=== PATIENT | male | born 1950 | race Caucasian/White ===

== ENCOUNTER 2019-03-23 15:01 | Observation (INO) ==
[2019-03-23 17:07] LABS: BASOPHILS % (AUTO) 0.6 % (0.2-1.0); EOSINOPHILS # (AUTO) 0.3 x10^3/uL (0.0-0.2); EOSINOPHILS % (AUTO) 3.9 % (0.9-2.9); HEMATOCRIT 35.5 % (42.0-54.0); LYMPHOCYTES # (AUTO) 1.6 X10^3/uL (1.3-2.9); LYMPHOCYTES % (AUTO) 22.7 % (21.0-51.0); MEAN CORPUSCULAR HEMOGLOBIN 27.8 pg (27.0-34.0); MEAN CORPUSCULAR HGB CONC 33.7 g/dL (33.0-35.0); MEAN CORPUSCULAR VOLUME 82.4 fL (80.0-100.0); MEAN PLATELET VOLUME 8.9 fL (7.4-11.0); MONOCYTES # (AUTO) 0.9 x10^3/uL (0.3-0.8); MONOCYTES % (AUTO) 12.3 % (0.0-13.0); NEUTROPHILS # (AUTO) 4.2 x10^3/uL (2.2-4.8); NEUTROPHILS % (AUTO) 60.5 % (42.0-75.0); PLATELET COUNT 272 X10^3/uL (150.0-450.0); RED BLOOD COUNT 4.31 X10^6/uL (4.7-6.0); RED CELL DISTRIBUTION WIDTH 14.3 % (11.6-16.5); WHITE BLOOD COUNT 6.9 X10^3/uL (3.6-10.0)
[2019-03-23 17:20] VITALS: BMI 30.2
[2019-03-23 17:20] LABS: ALANINE AMINOTRANSFERASE 20 Units/L (12-78); ALBUMIN 3.6 g/dL (3.4-5.0); ALKALINE PHOSPHATASE 164 Units/L (46-116); ASPARTATE AMINO TRANSFERASE 18 Units/L (15-37); BLOOD UREA NITROGEN 20 mg/dL (7-18); CALCIUM 9.1 mg/dL (8.5-10.1); CARBON DIOXIDE 26.7 mmol/L (21-32); CHLORIDE 106 mmol/L (98-107); CREATININE 1.56 mg/dL (0.70-1.30); SODIUM 144 mmol/L (136-145); TOTAL PROTEIN 7.6 g/dL (6.4-8.2); eGFR NON BLACK RACES 47 (>60)
--- NOTE | 2019-03-23 17:30 | DR.H&P ---
H&P - History & Physical for Day of: H&P Date: 03/23/19 - Chief Complaint Chief Complaint: left groin wound - History of Present Illness History of Present Illness: Patient is a 68 year old male that is being admitted secondary to a wound to the left groin. Patient reports that he had a heart cath on February 16. States that he had CABG on February 25. States that he has not noticed the site until he started smelling a foul smell. Denies groing pain. states that she did see the wound for the first time last night and it has been draining purulent drainage. Patient will be admitted for further evaluation and treatment. - Past Medical History Past Medical History: Coronary Artery Disease, Hypertension Additional Medical History: neuropathy, squamous cell carcinoma - Past Surgical History Surgical History: Appendectomy, Other - Family History Family Medical History: Coronary Artery Disease - Social History Does patient currently use any type of tobacco product: No Have you used tobacco products in the last 12 months: No Type of Tobacco Use: None Does any household member use tobacco: No Alcohol Use: None Drug Use: None - Medications Home Medications: No Known Drug Allergies [NKDA] Allergy (Verified 03/23/19 16:53) - Review of Systems Constitutional: See HPI Eyes: See HPI ENT: See HPI Respiratory: See HPI Cardiovascular: See HPI Gastrointestinal: See HPI Genitourinary: See HPI Musculoskeletal: See HPI Skin: See HPI Neurological: See HPI - Physical Exam Vital Signs: Temperature 97.8 F Pulse Rate [Apical] 58 Respiratory Rate 18 Blood Pressure [Right Arm] 119/62 O2 Sat by Pulse Oximetry 99 Oriented: Normal Eyes: Normal Ear: Normal Nose: Normal Throat: Normal Respiratory: Clear Throughout Cardiovascular: Normal : Normal Auscultation: Bowel Sounds: Normal Palpation: Normal Tenderness: Normal Skin: Normal (5cm open non-healing wound draining purulent drainage noted to left groin) Musculoskeletal: Normal Psychiatric: Normal Mood Description: Calm Affect: Angry Speech Pattern: Clear - Assessment/Plan (1) Wound dehiscence, surgical Status: Acute Plan: Consult surgery. IV antibiotics - Allergies Allergies/Adverse Reactions: Allergies Allergy/AdvReac Type Severity Reaction Status Date / Time No Known Drug Allergies Allergy Verified 03/23/19 16:53 [NKDA]
[2019-03-23] MEDS: HYDROGEN PEROXIDE 3% MT PRN ×2 (18:14→21:40)
[2019-03-23] MEDS: NEOSPORIN OINT TOP PRN ×2 (18:15→21:40)
[2019-03-23] MEDS: NS 1000 ML 1,000 ML IV SCH (18:23)
[2019-03-23] MEDS: VANCOMYCIN HCL 1 GM VIAL 1 G in D5W 250 ML IV 250 ML IV SCH (20:17)
[2019-03-23 20:39] LABS: BILIRUBIN,URINE NEGATIVE (NEGATIVE); BLOOD/HEMOGLOBIN,URINE NEGATIVE (NEGATIVE); GLUCOSE, URINE NEGATIVE (NEGATIVE); KETONES,URINE NEGATIVE (NEGATIVE); LEUKOCYTE ESTERASE ,URINE 1+ (NEGATIVE); NITRITES,URINE NEGATIVE (NEGATIVE); PROTEIN,URINE 1+ (NEGATIVE); UROBILINOGEN,URINE 2+ (NORMAL)
[2019-03-23 20:54] LABS: APPEARANCE,URINE CLEAR (CLEAR); COLOR,URINE YELLOW (YELLOW); RBC,URINE NONE SEEN /HPF (NONE SEEN)
[2019-03-23 20:55] LABS: BACTERIA,URINE NEGATIVE /HPF (NEGATIVE); SQUAMOUS EPITHELIAL CELL,UR NEGATIVE /HPF (NEGATIVE)
[2019-03-24] MEDS: NEOSPORIN OINT TOP PRN ×5 (03:52→21:50)
[2019-03-24] MEDS: HYDROGEN PEROXIDE 3% MT PRN ×3 (03:52→21:43)
[2019-03-24 06:07] LABS: BASOPHILS % (AUTO) 0.4 % (0.2-1.0); EOSINOPHILS # (AUTO) 0.4 x10^3/uL (0.0-0.2); HEMATOCRIT 32.8 % (42.0-54.0); LYMPHOCYTES # (AUTO) 1.4 X10^3/uL (1.3-2.9); LYMPHOCYTES % (AUTO) 23.2 % (21.0-51.0); MEAN CORPUSCULAR HEMOGLOBIN 27.5 pg (27.0-34.0); MEAN CORPUSCULAR HGB CONC 33.6 g/dL (33.0-35.0); MEAN CORPUSCULAR VOLUME 81.9 fL (80.0-100.0); MEAN PLATELET VOLUME 9.2 fL (7.4-11.0); MONOCYTES # (AUTO) 0.8 x10^3/uL (0.3-0.8); MONOCYTES % (AUTO) 13.4 % (0.0-13.0); NEUTROPHILS # (AUTO) 3.4 x10^3/uL (2.2-4.8); PLATELET COUNT 217 X10^3/uL (150.0-450.0); RED BLOOD COUNT 4.01 X10^6/uL (4.7-6.0); RED CELL DISTRIBUTION WIDTH 14.1 % (11.6-16.5); WHITE BLOOD COUNT 5.9 X10^3/uL (3.6-10.0)
[2019-03-24] MEDS: NS 1000 ML 1,000 ML IV SCH ×3 (06:13→21:43)
[2019-03-24 06:29] LABS: ALANINE AMINOTRANSFERASE 21 Units/L (12-78); ALKALINE PHOSPHATASE 152 Units/L (46-116); ASPARTATE AMINO TRANSFERASE 15 Units/L (15-37); BLOOD UREA NITROGEN 19 mg/dL (7-18); CALCIUM 8.4 mg/dL (8.5-10.1); CHLORIDE 108 mmol/L (98-107); COR CA(FOR HYPOALB) 9.2 mg/dL (8.5-10.1); COR NA(FOR HYPERGLY) 145 mmol/L (136-145); CREATININE 1.37 mg/dL (0.70-1.30); SODIUM 145 mmol/L (136-145); TOTAL PROTEIN 6.6 g/dL (6.4-8.2); eGFR NON BLACK RACES 55 (>60)
--- NOTE | 2019-03-24 07:01 | CT ---
HISTORY: Redness swelling right groin Study: CT pelvis with contrast Comparison: None Technique: Axial post-contrast images with coronal and sagittal reformats. Dose reduction procedures were used with mA/kv adjusted for body size. Findings: There is a CAVAL FILTER present. There is evidence for dissection involving the visualized distal abdominal aorta extending into the right common iliac artery and possibly into the proximal right external iliac artery. The visualized distal right external iliac artery and visualized right superficial femoral artery appear patent. There is no evidence for right groin hematoma or visible aneurysm or pseudoaneurysm. The left common iliac artery, external iliac artery, and common femoral arteries appear normal. Postsurgical changes are present in both groins with surgical clips present. In the left groin there is a 2.1 x 1.7 cm air and fluid collection in the subcutaneous tissues adjacent to which there is a 2nd 1.8 x 42.2 cm fluid collection surrounding the common femoral artery. This could represent hematoma/seroma or abscess. No lytic or blastic skeletal lesions are identified. There is a fat containing left inguinal hernia present IMPRESSION: Partially visualized aortic dissection involving the distal abdominal aorta with extension into the right common iliac artery and possibly also into the right external iliac artery. CTA of the abdomen pelvis is recommended for further evaluation as is vascular surgery consultation. No definite evidence for aneurysm or pseudoaneurysm in the right groin 2.1 x 1.7 cm air in fluid collection in the subcutaneous tissues of the left groin possibly subcutaneous seroma or abscess. Fat containing left inguinal hernia Reported By:
[2019-03-24] MEDS ORDERED: POTASSIUM CHL 60 MEQ/NS 0.45% 500 ML IV PRN (07:16)
[2019-03-24] MEDS ORDERED: KLOR-CON PO PRN (07:16)
[2019-03-24] MEDS ORDERED: MICRO K EXTEN CAP 10 MEQ PO PRN (07:16)
[2019-03-24] MEDS ORDERED: POTASSIUM CHL 40 MEQ/NS 0.45% 500 ML IV PRN (07:16)
[2019-03-24] MEDS ORDERED: POTASSIUM CHLORIDE LIQ 20 MEQ UDC PO PRN (07:16)
[2019-03-24] MEDS ORDERED: K-RIDER 10 MEQ/NS 100 ML 10 MEQ/100 ML BAG IV PRN (07:16)
[2019-03-24] MEDS ORDERED: PHARMACY CONSULT - DOSE _____ XX SCH (08:00)
[2019-03-24] MEDS: VANCOMYCIN HCL 1 GM VIAL 1 G in D5W 250 ML IV 250 ML IV SCH ×2 (08:59→21:42)
--- NOTE | 2019-03-24 09:32 | CT ---
HISTORY: Aortic dissection Study: CTA chest with and without contrast Comparison: CT abdomen pelvis without contrast 03/23/2019 Technique: Axial pre and postcontrast images with coronal and sagittal reformats. Three-dimensional maximum intensity projection images were obtained and evaluated. Dose reduction procedures were used with mA/kv adjusted for body size. Findings: Vascular findings: The ascending thoracic aorta and aortic arch appear within normal limits with the exception of some calcific atherosclerotic change. The origins and visualized portions of the great vessels appear within normal limits. There is a penetrating ulceration extending posteriorly from the proximal descending aorta distal to the origins of the great vessels from which there is a dissection which extends upward to the proximal most descending aorta and caudally to the proximal abdominal aorta just above the level of the origins of the celiac axis. From the proximal descending thoracic aorta to just above the origin of the celiac axis there is filling of the true lumen and thrombosis of the false lumen. Just above the level of the origin of the celiac axis there is filling of the true and false lumen. The celiac axis, SMA, and bilateral renal arteries fill from the true lumen. There is a right ureteral stent in place. The above described dissection was noted to extend all the way into the right external iliac artery on the previous CT pelvis. Nonvascular findings: There is no evidence for mediastinal mass,, enlarged mediastinal or enlarged hilar adenopathy, or significant pleural effusion. Those portions of the upper abdominal organs visualized were within normal limits. No chest wall or axillary abnormality is identified. Examination of the lung neves demonstrated a benign calcified granuloma in the right lower lobe. No noncalcified nodules, masses, alveolar infiltrates, areas of consolidation, peribronchial thickening, or bronchiectasis is identified. IMPRESSION: Penetrating intimal ulceration in the proximal descending thoracic aorta contributing to a dissection which extends upward to the distal aortic arch and caudally through the visualized abdominal aorta. On the previous CT pelvis with contrast the dissection was noted to extend possibly as far as the right external iliac artery. This will be further evaluated on the patient's upcoming CTA abdomen and pelvis Right ureteral stent Lungs clear Reported By:
--- NOTE | 2019-03-24 09:43 | CT ---
HISTORY: Aortic dissection Study: CTA abdomen pelvis with and without contrast Comparison: CTA chest same day, CT pelvis 03/23/2019 Technique: Axial pre and postcontrast images with coronal, sagittal, and three-dimensional maximum intensity projection images obtained in evaluated. Dose reduction procedures were used with mA/kv adjusted for body size. Findings: Vascular findings: There was a descending thoracic aortic dissection described in detail on the CTA chest of the same date. The thoracic aortic dissection extends through the entire abdominal aorta, into the right common iliac artery, and into the proximal right external iliac artery. From just above the level of the origin of the celiac axis there is filling of both the true and false lumens. The patent celiac axis, SMA, and bilateral renal arteries fill from the true lumen. There is a right renal artery stent present. The TREMAINE also fills from the true lumen. The dissection terminates in the proximal to mid right external iliac artery. The left common iliac artery, internal iliac artery, and external iliac arteries are uninvolved and patent. Nonvascular findings: The liver, spleen, adrenal glands, and pancreas are within normal limits. The kidneys are unobstructed and without stones or masses. There is a CAVAL FILTER present. No ureteral calculi are identified. No intraperitoneal or retroperitoneal lymphadenopathy of significance is identified. There are no findings suggestive of diverticulitis or colitis. Examination of the pelvis demonstrated no evidence for pelvic masses, pelvic fluid, or pelvic lymphadenopathy. Once again noted is a small air in fluid collection in the left groin possibly a seroma versus abscess. This is unchanged from the prior examination. No lytic or blastic skeletal lesions of significance are identified. IMPRESSION: Continuation of the previously described thoracic aortic dissection (see dictation for the CTA chest same date close) to involve the entire abdominal aorta, right common iliac artery, and right external iliac artery. Expedient vascular surgery evaluation recommended. Small air in fluid collection in the left groin unchanged from the prior examination and possibly representing seroma or abscess. Clinical correlation is recommended Reported By:
[2019-03-24] MEDS: PERCOCET TAB 5/325 MG PO PRN ×2 (10:06→21:41)
[2019-03-24] MEDS: CORDARONE TAB 200 MG PO SCH (11:56)
[2019-03-24] MEDS: LOPRESSOR TAB 50 MG PO SCH ×2 (11:57→21:37)
[2019-03-24] MEDS: MAGNESIUM SULFATE 1 GRAM/100 mL PREMIX 1 GM/100 ML BAG IV PRN ×2 (11:57→13:24)
[2019-03-24] MEDS: K-DUR TAB 20 MEQ PO PRN (11:58)
[2019-03-24] MEDS: ELIQUIS PO SCH ×2 (12:07→21:39)
[2019-03-24] MEDS: ASPIRIN EC 81 MG PO SCH (12:07)
[2019-03-24] MEDS: LASIX PO SCH (21:41)
[2019-03-25 06:11] LABS: BASOPHILS % (AUTO) 0.6 % (0.2-1.0); EOSINOPHILS # (AUTO) 0.5 x10^3/uL (0.0-0.2); EOSINOPHILS % (AUTO) 7.8 % (0.9-2.9); HEMATOCRIT 33.2 % (42.0-54.0); HEMOGLOBIN 11.2 g/dL (13.5-18.0); LYMPHOCYTES # (AUTO) 1.5 X10^3/uL (1.3-2.9); LYMPHOCYTES % (AUTO) 23.3 % (21.0-51.0); MEAN CORPUSCULAR HEMOGLOBIN 27.7 pg (27.0-34.0); MEAN CORPUSCULAR HGB CONC 33.8 g/dL (33.0-35.0); MEAN CORPUSCULAR VOLUME 82.1 fL (80.0-100.0); MEAN PLATELET VOLUME 9.3 fL (7.4-11.0); MONOCYTES # (AUTO) 0.7 x10^3/uL (0.3-0.8); MONOCYTES % (AUTO) 11.2 % (0.0-13.0); NEUTROPHILS # (AUTO) 3.6 x10^3/uL (2.2-4.8); NEUTROPHILS % (AUTO) 57.1 % (42.0-75.0); PLATELET COUNT 193 X10^3/uL (150.0-450.0); RED BLOOD COUNT 4.04 X10^6/uL (4.7-6.0); RED CELL DISTRIBUTION WIDTH 14.1 % (11.6-16.5); WHITE BLOOD COUNT 6.3 X10^3/uL (3.6-10.0)
[2019-03-25 06:57] LABS: ALANINE AMINOTRANSFERASE 16 Units/L (12-78); ALBUMIN 2.9 g/dL (3.4-5.0); ALKALINE PHOSPHATASE 144 Units/L (46-116); ASPARTATE AMINO TRANSFERASE 18 Units/L (15-37); BLOOD UREA NITROGEN 13 mg/dL (7-18); CALCIUM 8.2 mg/dL (8.5-10.1); CARBON DIOXIDE 22.6 mmol/L (21-32); CHLORIDE 108 mmol/L (98-107); COR CA(FOR HYPOALB) 9.1 mg/dL (8.5-10.1); CREATININE 1.25 mg/dL (0.70-1.30); SODIUM 144 mmol/L (136-145); TOTAL PROTEIN 6.4 g/dL (6.4-8.2); eGFR NON BLACK RACES > 60 (>60)
[2019-03-25] MEDS ORDERED: PHARMACY COMMENT IV NR (08:30)
[2019-03-25 09:00] LABS: CREATININE 1.23 mg/dL (0.70-1.30); VANCOMYCIN,TROUGH 11.2 ug/mL (15-20)
[2019-03-25] MEDS ORDERED: ELIQUIS PO SCH (09:00)
[2019-03-25] MEDS ORDERED: LIPITOR TAB 40 MG PO SCH (09:00)
[2019-03-25] MEDS ORDERED: BENADRYL INJ 50 MG VIAL IVP ONE (09:33)
[2019-03-25] MEDS: VANCOMYCIN HCL 1 GM VIAL 1 G in D5W 250 ML IV 250 ML IV SCH (09:35)
[2019-03-25] MEDS ORDERED: ZOFRAN INJ 4 MG VIAL ONE (09:37)
[2019-03-25] MEDS ORDERED: BENADRYL INJ 50 MG VIAL ONE (09:37)
[2019-03-25] MEDS: ZOFRAN INJ 4 MG VIAL IVP PRN ×2 (09:38→09:43)
[2019-03-25] MEDS: PERCOCET TAB 5/325 MG PO PRN (09:39)
[2019-03-25] MEDS: CORDARONE TAB 200 MG PO SCH (09:40)
[2019-03-25] MEDS: LOPRESSOR TAB 50 MG PO SCH (09:41)
[2019-03-25] MEDS: NEOSPORIN OINT TOP PRN ×2 (09:41→13:16)
[2019-03-25] MEDS: LASIX PO SCH (09:41)
[2019-03-25] MEDS: K-DUR TAB 20 MEQ PO PRN (09:41)
[2019-03-25] MEDS: ASPIRIN EC 81 MG PO SCH (09:41)
[2019-03-25 11:59] VITALS: BP 115/65
[2019-03-25] MEDS: NS 1000 ML 1,000 ML IV SCH (12:22)
== END 2019-03-25 15:05 | disposition short-term general hospital (02) ==
LOC: MED/SURG
PROVIDERS: ADMIT Internal Medicine; ATTEND Internal Medicine
DX: B96.1 Klebsiella pneumoniae [K. pneumoniae] as the cause of diseases classified elsewhere; I10 Essential (primary) hypertension; L03.116 Cellulitis of left lower limb; Z98.890 Other specified postprocedural states; I25.10 Atherosclerotic heart disease of native coronary artery without angina pectoris; Z79.01 Long term (current) use of anticoagulants; B96.89 Other specified bacterial agents as the cause of diseases classified elsewhere; T81.49XA Infection following a procedure, other surgical site, initial encounter
CPT/HCPCS: 36415; 71275; 72193; 74174; 80053; 80202; 81001; 82565; 83735; 85025; 87040; 87070; 87075; 87077; 87086; 87186; 87205; 93005; A4222; G0378; J1200; J2405; J3370; J3475; J7030; J7060